=== PATIENT | male | born 1985 | race Caucasian/White ===

== ENCOUNTER → 2019-03-07 | Outpatient (CLI) | payer SELFPAY ==
--- NOTE | 2019-03-07 10:57 | CT_ITS ---
STUDY: CT TEMPORAL BONES WITHOUT CONTRAST - ATTN: I.A.C. S REASON FOR EXAM: Male, 33 years old. Right earache. Right cholesteatoma. RADIATION DOSAGE (If Supplied By Facility): CTDIvol = ( 67.58 ) mGy, DLP = ( 628.92 ) mGycm TECHNIQUE: The patient was scanned in a multi detector CT scanner. Transaxial imaging was performed without the administration of intravenous contrast material. Sagittal and coronal images were reconstructed. Individualized dose optimization techniques were used for this CT. COMPARISON: None. FINDINGS: RIGHT TEMPORAL BONE Normal right internal auditory canal. Mild degree of soft tissue density seen in the attic of the the right middle ear cavity adjacent to the the mallet. Normal right cochlea and semicircular canals. Normal vestibular aqueduct. Normal right petrous carotid artery. Normal right jugular fossa. Partial opacification of the mastoid air cells. Normal right petrous apex. LEFT TEMPORAL BONE Normal left internal auditory canal. Normal visualized ossicles and tympanic cavity. Normal left cochlea and semicircular canals. Normal vestibular aqueduct. Normal left petrous carotid artery. Normal right jugular fossa. Normal left mastoid air cells. Normal left petrous apex. CT/Orb Sella Post Fossa Ear w/o IMPRESSION: Soft tissue proliferation in the attic of the right middle ear cavity adjacent to the ossicles. Partial opacification of the right mastoid air cells. Electronically Signed: Rolando Eason, at 11:28 EDT , Service support ,
== END | disposition home or self-care (01) ==
LOC: CT 10:50
PROVIDERS: Referring Provider Otolaryngology; Visit Provider Otolaryngology
DX: H71.91 Unspecified cholesteatoma, right ear (principal)
CPT/HCPCS: 70480

== ENCOUNTER → 2023-05-31 | Outpatient (CLI) | payer SELFPAY ==
--- NOTE | 2023-05-31 07:26 | CT_ITS ---
STUDY: CT TEMPORAL BONES WITHOUT CONTRAST - ATTN: I.A.C. S REASON FOR EXAM: Male, 38 years old. R OTORRLEA RADIATION DOSAGE (If Supplied By Facility): CTDIvol = ( 67.58 ) mGy, DLP = ( 933.05 ) mGycm TECHNIQUE: The patient was scanned in a multi detector CT scanner. Transaxial imaging was performed without the administration of intravenous contrast material. Sagittal and coronal images were reconstructed. Individualized dose optimization techniques were used for this CT. COMPARISON: None. FINDINGS: RIGHT TEMPORAL BONE Normal right internal auditory canal. Normal visualized ossicles and tympanic cavity. Normal right cochlea and semicircular canals. Normal vestibular aqueduct. Normal right petrous carotid artery. Normal right jugular fossa. Normal right mastoid air cells. Normal right petrous apex. LEFT TEMPORAL BONE Normal left internal auditory canal. Normal visualized ossicles and tympanic cavity. Normal left cochlea and semicircular canals. Normal vestibular aqueduct. Normal left petrous carotid artery. Normal right jugular fossa. Normal left mastoid air cells. Normal left petrous apex. Soft tissue density is seen in the left external ear canal down to the level of the tympanic membrane. CT/Orb Sella Post Fossa Ear w/o IMPRESSION: Soft tissue density seen in the left external ear canal down to the level of the tympanic membrane. . Electronically Signed: Rolando Eason MD at 15:01 EST ,
== END | disposition home or self-care (01) ==
PROVIDERS: Referring Provider Otolaryngology; Visit Provider Otolaryngology
DX: H92.11 Otorrhea, right ear (principal)
CPT/HCPCS: 70480